=== PATIENT | female | born 1965 | race Caucasian/White ===

== ENCOUNTER 2021-08-23 21:30 | Emergency (ER) | payer SELFPAY ==
[2021-08-23 21:41] VITALS: BP 129/74; PULSE 87; RESP 18; TEMP 36.7; O2SAT 98
--- NOTE | 2021-08-23 22:19 | PC.NURSE ---
Pt comes up to triage desk [id number] states I am going either going home or to [place] . Pt upset regarding wait time and injury. 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
== END 2021-08-23 22:37 | disposition left against medical advice (07) ==
PROVIDERS: PCP Internal Medicine
DX: S09.90XA Unspecified injury of head, initial encounter (principal)
CPT/HCPCS: 99199

== ENCOUNTER 2023-06-28 00:44 | Day surgery (SDC) | payer OTHER, SELFPAY ==
[2023-06-12 15:48] VITALS: BMI 27.6
--- NOTE | 2023-06-26 10:10 | SUR.PREOP ---
Patient called regarding upcoming procedure. Reviewed preop instructions, appointment times, and procedure prep.
--- NOTE | 2023-06-27 14:59 | PM.HPGS ---
History of Present Illness History of Present Illness Consent: Risks, benefits, and alternatives have been discussed and questions answered. Patient agrees to proceed with procedure. Chief complaint: fam hx colon ca,fam hx colon polyps Narrative: Sabine Kay is a 57 year old female Referred for colon cancer screening. She has a family history of colon cancer, Maternal grandmother and aunt. Also her father has had precancerous polyps. Review of Systems Review of Systems: All systems reviewed & are unremarkable except as noted in HPI and below [facility] Social History Social History Smoking status: Never smoker Alcohol intake: current Alcohol use details: occasional Substance use: never Substance use type: does not use Living arrangements: with family Spiritual care concerns: No Meds Home Medications and Allergies Home Medications Medication Instructions Recorded Confirmed Type [id number]-cmyfkijexvgge-[id number] 250 1 tablet PO PRN PRN Headache 06/12/23 06/28/23 History mg-250 mg-65 mg tablet (Excedrin Migraine) Allergies Allergy/AdvReac Type Severity Reaction Status Date / Time No Known Allergies Allergy Unknown Verified 06/28/23 07:06 Exam Const: General: alert Orientation/consciousness: patient oriented x3 Resp: Auscultation: clear to auscultation bilaterally Cardio: Rhythm: regular rhythm GI: GI Palp: Yes Soft to palpation and No Tenderness to palpation present (GI) Neuro: General: patient oriented x3 Assessment and Plan Assessment and plan (1) Colon cancer screening: Code(s): Z12.11 - Encounter for screening for malignant neoplasm of colon Status: Acute Assessment and Plan: Colonoscopy with possible biopsy or polypectomy or cautery or injection of substances.
[2023-06-28 07:07] VITALS: BP 105/67; PULSE 72; RESP 20; TEMP 36.3; O2SAT 99; BMI 28.0
[2023-06-28] MEDS: LACTATED RINGERS 1,000 ML 150 ML IV CONT (07:21)
--- NOTE | 2023-06-28 07:58 | P.PNAN_ITS ---
Anes - Initial Pre Proc Eval Procedure: Operation Date: 06/28/23 08:00 Proposed Procedures p Colonoscopy - Artie Love MD Date/Time: 06/28/23 07:58 Surgeon: Artie Love MD Pre Op Diagnosis: fam hx colon ca,fam hx colon polyps Patient Data Age: 57 Gender: F Height: 1.63 m Weight: 74.1 kg Last Vital Signs Temp 97.3 F L 06/28/23 07:07 Pulse 72 06/28/23 07:07 Resp 20 06/28/23 07:07 BP 105/67 06/28/23 07:07 Pulse Ox 99 06/28/23 07:07 O2 Del Method Room Air 06/28/23 07:07 Allergies Allergy/AdvReac Type Severity Reaction Status Date / Time No Known Allergies Allergy Unknown Verified 06/28/23 07:06 Home Medications Medication Instructions Recorded Confirmed Type [id number]-rrbpxetalmiar-nornveqh 250 1 tablet PO PRN PRN Headache 06/12/23 06/28/23 History mg-250 mg-65 mg tablet (Excedrin Migraine) Patient hx anesthesia problems: none Family hx anesthesia problems: none Results Review: All pre-operative results and documents have been reviewed as part of the pre- operative evaluation. [facility] Social History Social History Smoking status: Never smoker Alcohol intake: current Alcohol use details: occasional Substance use: never Substance use type: does not use Living arrangements: with family Spiritual care concerns: No Anes - Eval Final PreProcedure Day of Procedure 06/28/23 07:58 Patient weight: normal Heart: regular rate and rhythm Lungs: clear to auscultation Airway: Mallampati scale class II Neurological: alert and oriented Last oral intake: >/= 8 hours ASA classification: II Emergent: no Anesthetic plan: proceed Anesthesia type and monitoring: general GIVS and standard monitoring Results Review: All pre-operative results and documents have been reviewed as part of the pre- operative evaluation. Informed Consent: The patient's anesthetic plan and its attendant risks and benefits were discussed with the patient/family/POA. Questions were solicited and answers provided to the satisfaction of the patient/family/POA.
[2023-06-28 08:14] VITALS: BP 80/50; PULSE 64; RESP 15; O2SAT 96
[2023-06-28 08:24] VITALS: BP 101/63; PULSE 69; RESP 15; O2SAT 100
[2023-06-28 08:34] VITALS: BP 107/62; PULSE 62; RESP 18; O2SAT 100
== END 2023-06-28 08:56 | disposition home or self-care (01) ==
PROVIDERS: PCP Internal Medicine; Visit Provider Internal Medicine Gastroenterology
PROC: 0DJD8ZZ Inspection of Lower Intestinal Tract, Via Natural or Artificial Opening Endoscopic (ICD-10-PCS; CPT 45378; principal; 2023-06-28 08:00)
DX: Z12.11 Encounter for screening for malignant neoplasm of colon (principal); K57.30 Diverticulosis of large intestine without perforation or abscess without bleeding; K64.8 Other hemorrhoids; F10.90 Alcohol use, unspecified, uncomplicated; Z79.82 Long term (current) use of aspirin; Z80.0 Family history of malignant neoplasm of digestive organs
CPT/HCPCS: 45378; J2704; J7120

== ENCOUNTER 2023-09-13 13:14 | Outpatient (CLI) | payer OTHER, SELFPAY ==
--- NOTE | ~2023-09-13 | XR_ITS ---
EXAMINATION: XR hip RT 2V w AP pelvis INDICATION: Orthopedic aftercare TECHNIQUE: AP view the pelvis and two views of the right hip are obtained. 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 Alignment is normal. There is no fra cture. There is no evidence of hardware failure or loosening. Phleboliths are noted in the pelvis. Tu bal occlusion devices of the fallopian tubes are also noted. IMPRESSION: 1. No acute osseous abnormality. Reviewed, dictated and finalized at location [facility]
== END 2023-09-13 13:15 | disposition home or self-care (01) ==
PROVIDERS: PCP Internal Medicine
DX: Z47.89 Encounter for other orthopedic aftercare (principal)
CPT/HCPCS: 73502